=== PATIENT | female | born 1960 | race Caucasian/White ===

== ENCOUNTER 2016-08-10 09:26 | Emergency (ER) | payer OTHER ==
[~2016-08-10] VITALS: Ht 167.6 cm; Wt 65.8 kg
[~2016-08-10 09:26] MED LIST: HCTZ PO; VOLTAREN-XR100 MG PO; ZOLOFT50 MG PO
[2016-08-10 09:31] VITALS: BP 160/63
--- NOTE | 2016-08-10 09:35 | NUR ---
PT AMBULATE TO BED 2.
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
--- NOTE | 2016-08-10 09:48 | NUR ---
DR. ROSENBERG EVALUATING PATIENT AT BEDSIDE.
--- NOTE | 2016-08-10 09:48 | NUR ---
AAKASH MAGALLANES) AT BEDSIDE TO EVALUATE PATIENT WELL.
[2016-08-10] MEDS ORDERED: HYDROcodone/APAP 5/325 MG 1 TAB TAB PO ONE (10:00)
[2016-08-10] MEDS ORDERED: KETOROLAC 30 MG/ML VIAL IM ONE (10:00)
[2016-08-10 10:20] VITALS: BP 155/67
--- NOTE | 2016-08-10 10:20 | NUR ---
Patient discharged with v/s stable. Written and verbal after care instructions given and explained. Patient alert, oriented and verbalized understanding of instructions. Ambulatory with steady gait. All questions addressed prior to discharge. ID band removed. Patient advised to follow up with PMD. Rx of motrin and norco given. Patient educated on indication of medication including possible reaction and side effects. Opportunity to ask questions provided and answered.
== END 2016-08-10 10:20 | disposition home or self-care (01) ==
LOC: MED 09:26
DX: S70.12XA Contusion of left thigh, initial encounter (principal); I10 Essential (primary) hypertension; Z91.018 Allergy to other foods; X58.XXXA Exposure to other specified factors, initial encounter; Y93.89 Activity, other specified; Y92.89 Other specified places as the place of occurrence of the external cause; Y99.8 Other external cause status
CPT/HCPCS: 96372; 99283; J1885

== ENCOUNTER 2016-08-16 13:10 | Emergency (ER) | payer OTHER ==
[~2016-08-16] VITALS: Ht 167.6 cm; Wt 76.7 kg
[2016-08-16 13:18] VITALS: BP 156/101
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
--- NOTE | 2016-08-16 15:48 | NUR ---
AAO, COOPERATIVE PT BEING ASSESS BY DR BALLESTEROS AT BEDSIDE
[2016-08-16 16:00] VITALS: BP 156/93
== END 2016-08-16 16:00 | disposition home or self-care (01) ==
LOC: MED 13:10
DX: S70.12XA Contusion of left thigh, initial encounter (principal); I10 Essential (primary) hypertension; F17.200 Nicotine dependence, unspecified, uncomplicated; X58.XXXA Exposure to other specified factors, initial encounter; Y93.89 Activity, other specified; Y92.89 Other specified places as the place of occurrence of the external cause; Y99.8 Other external cause status